=== PATIENT | male | born 1990 | race Caucasian/White ===

== ENCOUNTER 2022-07-03 12:42 | Emergency (ER) | payer BC ==
[2022-07-03 13:34] VITALS: BP 137/83; PULSE 64; RESP 18; TEMP 97.9
--- NOTE | 2022-07-03 13:36 | ED ---
General Adult HPI - General Source: patient, RN notes reviewed, old records reviewed Mode of arrival: ambulatory Limitations: no limitations - History of Present Illness -: days(s) (1) Location: chest (right ribs) Severity scale (1-10): 3 <Mainor Landeros - Last Filed: 07/03/22 13:34> - History of Present Illness Radiation: non-radiation Quality: aching Consistency: intermittent Improves with: rest Worsens with: movement, other (Palpation) Associated Symptoms: denies other symptoms Treatments Prior to Arrival: NSAID <Anders Meyer - Last Filed: 07/03/22 15:19> - General Chief complaint: Chest Pain Stated complaint: rib pain Time Seen by Provider: 07/03/22 13:31 - History of Present Illness Initial comments: 32-year-old well-appearing male presents emergency room with complaints of 2 weeks of cough. Patient states he was seen in urgent care on Friday had chest x-ray that was negative. He denies fevers. Did cough yesterday and felt a snap on the right side with increased pain today. States worse with movement, cough or sneezing. Patient does smoke marijuana denies cigarette smoking. No other medical history. (Mainor Landeros) - Related Data Previous Rx's Medication Instructions Recorded HYDROcodone/APAP 5-325MG [[place] 1 tab PO Q4HR PRN 3 Days #15 tab 07/03/22 5-325] Allergies Allergy/AdvReac Type Severity Reaction Status Date / Time No Known Allergies Allergy Verified 07/03/22 13:34 Review of Systems ROS Other: All systems not noted in ROS Statement are negative. <Mainor Landeros - Last Filed: 07/03/22 13:34> ROS Other: All systems not noted in ROS Statement are negative. Constitutional: Denies: fever, chills Respiratory: Denies: cough, dyspnea, wheezes Cardiovascular: Reports: as per HPI, chest pain Gastrointestinal: Denies: abdominal pain, nausea, vomiting, diarrhea, constipation Genitourinary: Denies: dysuria, hematuria, testicular pain Skin: Denies: rash <Anders Meyer - Last Filed: 07/03/22 15:19> ROS Statement: Those systems with pertinent positive or pertinent negative responses have been documented in the HPI. Past Medical History Past Medical History: No Reported History History of Any Multi-Drug Resistant Organisms: None Reported Past Surgical History: No Surgical Hx Reported Past Psychological History: Anxiety Smoking Status: Current every day smoker Past Alcohol Use History: Rare Past Drug Use History: Marijuana <Mainor Landeros - Last Filed: 07/03/22 13:34> General Exam Limitations: no limitations <Mainor Landeros - Last Filed: 07/03/22 13:34> General appearance: alert, in no apparent distress Head exam: Present: atraumatic, normocephalic Eye exam: Present: normal appearance Respiratory exam: Present: normal lung sounds bilaterally, chest wall tenderness. Absent: respiratory distress, wheezes, rales, rhonchi, stridor, accessory muscle use Cardiovascular Exam: Present: regular rate, normal rhythm, normal heart sounds. Absent: systolic murmur, diastolic murmur, rubs, gallop GI/Abdominal exam: Present: soft. Absent: distended, tenderness, guarding, rebound, rigid, mass Extremities exam: Present: normal inspection Neurological exam: Present: alert Skin exam: Present: warm, dry, intact, normal color. Absent: rash <GillescarmelinaAnders - Last Filed: 07/03/22 15:19> Course Vital Signs 07/03/22 13:30 Temperature 97.9 F Pulse Rate 64 Respiratory 18 Rate Blood Pressure 137/83 O2 Sat by Pulse 97 Oximetry Disposition <Laurent Landerosi - Last Filed: 07/03/22 13:34> Is patient prescribed a controlled substance at d/c from ED?: Yes <GillescarmelinaAnders - Last Filed: 07/03/22 15:19> Clinical Impression: Chest wall injury Disposition: HOME SELF-CARE Condition: Good Instructions (If sedation given, give patient instructions): Chest Wall Pain (ED) Prescriptions: HYDROcodone/APAP 5-325MG [[place] 5-325] 1 tab PO Q4HR PRN 3 Days #15 tab PRN Reason: Pain Referrals: Gasper Vega DO [Primary Care Provider] - 1-2 days
--- NOTE | 2022-07-03 14:06 | XR ---
EXAMINATION TYPE: XR chest 2V DATE OF EXAM: 07/03/2022 1:48 PM COMPARISON: None TECHNIQUE: XR chest 2V Frontal and lateral views of the chest. CLINICAL INDICATION:Male, 32 years old with history of right rib pain; FINDINGS: Lungs/Pleura: There is no evidence of pleural effusion, focal consolidation, or pneumothorax. Pulmonary vascularity: Unremarkable. Heart/mediastinum: Cardiomediastinal silhouette is unremarkable. Musculoskeletal: No acute osseous pathology. IMPRESSION: No acute cardiopulmonary disease/process. No evidence of displaced right rib fracture.
[2022-07-03] MEDS ORDERED: HYDROcodone/APAP 5-325MG 1 EACH TAB PO STA (15:15)
[2022-07-03] MEDS ORDERED: IBUPROFEN 400 MG TAB PO STA (15:15)
== END 2022-07-03 15:39 | disposition home or self-care (01) ==
LOC: EC 12:42
DX: S29.001A Unspecified injury of muscle and tendon of front wall of thorax, initial encounter (principal); F41.9 Anxiety disorder, unspecified; F17.200 Nicotine dependence, unspecified, uncomplicated; F12.90 Cannabis use, unspecified, uncomplicated; X58.XXXA Exposure to other specified factors, initial encounter
CPT/HCPCS: 71046; 99285

== ENCOUNTER 2023-03-06 09:34 | Emergency (ER) | payer BC ==
--- NOTE | 2023-03-06 10:10 | ED ---
Back Pain HPI - General Source: patient, RN notes reviewed Mode of arrival: ambulatory Limitations: no limitations <Nacho Baumann - Last Filed: 03/06/23 10:08> <Andrzej Sapp - Last Filed: 03/06/23 13:04> - General Chief Complaint: Back Pain/Injury Stated Complaint: Back pain Time Seen by Provider: 03/06/23 10:08 - History of Present Illness Initial Comments: 32-year-old male presents emergency Department with chief complaint of low back pain, right sciatica. Patient states symptoms started last few days. Patient denies any bowel, bladder incontinence or retention. No saddle anesthesias. (Nacho Baumann) This is a 32-year-old male who presents emergency Department stating he has some sciatica going down his left leg. Patient states his been ongoing for a couple weeks. 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 Patient denies any perineum numbness patient denies any difficulty urinating or being incontinent. Patient denies any direct trauma or fall. Patient denies any fever chills. Patient denies any abdominal pain. Patient denies any dysuria hematuria urinary frequency. (Andrzej Sapp) - Related Data Previous Rx's Medication Instructions Recorded HYDROcodone/APAP 5-325MG [[place] 1 tab PO Q4HR PRN 3 Days #15 tab 07/03/22 5-325] predniSONE [Deltasone] 40 mg PO DAILY #8 tab 03/06/23 Allergies Allergy/AdvReac Type Severity Reaction Status Date / Time No Known Allergies Allergy Verified 03/06/23 10:05 Review of Systems ROS Other: All systems not noted in ROS Statement are negative. <Nacho Baumann - Last Filed: 03/06/23 10:08> ROS Other: All systems not noted in ROS Statement are negative. <Andrzej Sapp - Last Filed: 03/06/23 13:04> ROS Statement: Those systems with pertinent positive or pertinent negative responses have been documented in the HPI. Past Medical History Past Medical History: No Reported History History of Any Multi-Drug Resistant Organisms: None Reported Past Surgical History: No Surgical Hx Reported Past Psychological History: Anxiety Smoking Status: Current every day smoker Past Alcohol Use History: Rare Past Drug Use History: Marijuana <Nacho Baumann - Last Filed: 03/06/23 10:08> General Exam Limitations: no limitations General appearance: alert, in no apparent distress <Nacho Baumann - Last Filed: 03/06/23 10:08> <Andrzej Sapp - Last Filed: 03/06/23 13:04> - General Exam Comments Initial Comments: Visual Physical Exam Vital signs reviewed General: Well-appearing, nontoxic, no acute distress. Head: Normocephalic, atraumatic Eyes: PERRLA, EOMI ENT: Airway patent Chest: Nonlabored breathing Skin: No visual rash, normal skin tone Neuro: Alert and oriented 3 Musculoskeletal: No gross abnormalities (Nacho Baumann) GENERAL: Patient is well-developed and well-nourished. Patient is nontoxic and well-hydrated and is in no acute distress. When I initially came to speak with the patient he was sleeping soundly in bed and I needed to shake him to arouse him ENT: Neck is soft and supple. No significant lymphadenopathy is noted. Oropharynx is clear. Moist mucous membranes. Neck has full range of motion without eliciting any pain. EYES: The sclera were anicteric and conjunctiva were pink and moist. Extraocular movements were intact and pupils were equal round and reactive to light. Eyelids were unremarkable. SKIN: Skin is clear with no lesions or rashes and otherwise unremarkable. NEUROLOGIC: Patient is alert and oriented x3. Cranial nerves II through XII are grossly intact. Motor and sensory are also intact. Normal speech, volume and content. Symmetrical smile. Perineum examination had normal sensation. Patient had straight leg test and pain was elicited on the left leg at about 60 MUSCULOSKELETAL: Normal extremities with adequate strength and full range of motion. No lower extremity swelling or edema. No calf tenderness. LYMPHATICS: No significant lymphadenopathy is noted PSYCHIATRIC: Normal psychiatric evaluation. (Andrzej Sapp) Course Vital Signs 03/06/23 03/06/23 10:06 12:13 Temperature 98.0 F Pulse Rate 83 72 Respiratory 16 18 Rate Blood Pressure 134/88 145/93 O2 Sat by Pulse 100 100 Oximetry Medical Decision Making <Nacho Baumann - Last Filed: 03/06/23 10:08> <Andrzej Sapp - Last Filed: 03/06/23 13:04> - Medical Decision Making I performed a quick note portion of this chart signed Nacho Baumann PA-C (Nacho Baumann) Was pt. sent in by a medical professional or institution (IMELDA Sanabria, GEOPHYSICAL MANAGER, urgent care, hospital, or [place] health [facility] facility...) When possible be specific @ -No Did you speak to anyone other than the patient for history (EMS, parent, family, police, friend...)? What history was obtained from this source @ -No Did you review nursing and triage notes (agree or disagree)? Why? @ -I reviewed and agree with nursing and triage notes Were old charts reviewed (outside hosp., previous admission, EMS record, old EKG , old radiological studies, urgent care reports/EKG's, [place] health [facility] facility records)? Report findings @ -No old charts were reviewed Differential Diagnosis (chest pain, altered mental status, abdominal pain women, abdominal pain men, vaginal bleeding, weakness, fever, dyspnea, syncope, headache, dizziness, GI bleed, back pain, seizure, CVA, palpatations, mental health, musculoskeletal)? @ -Differential Musculoskeletal Muscular strain, contusion, ligament sprain, fracture, arthritis, septic arthritis, bursitis, cellulitis, muscle spasm, nerve compression, DVT, arterial occlusion, herpes zoster, electrolyte abnormality, tumor.... This is not meant to be in all inclusive list EKG interpreted by me (3pts min.). @ -As above X-rays interpreted by me (1pt min.). @ -Lumbosacral spine x-ray showed no acute abnormality CT interpreted by me (1pt min.). @ -None done U/S interpreted by me (1pt. min.). @ -None done What testing was considered but not performed or refused? (CT, X-rays, U/S, labs)? Why? @ -None What meds were considered but not given or refused? Why? @ -None Did you discuss the management of the patient with other professionals (professionals i.e. IMELDA Sanabria, GEOPHYSICAL MANAGER, lab, RT, psych nurse, social scientist, bank courier, teacher, strike warfare/missile systems officer, correctional case manager)? Give summary @ -No Was smoking cessation discussed for >3mins.? @ -No Was critical care preformed (if so, how long)? @ -No Were there social determinants of health that impacted care today? How? (Homelessness, low income, unemployed, alcoholism, drug addiction, transportation, low edu. Level, literacy, decrease access to med. care, nursing home, rehab)? @ -No Was there de-escalation of care discussed even if they declined (Discuss DNR or withdrawal of care, Hospice)? DNR status @ -No What co-morbidities impacted this encounter? (DM, HTN, Smoking, COPD, CAD, Cancer, CVA, ARF, Chemo, Hep., AIDS, mental health diagnosis, sleep apnea, morbid obesity)? @ -None Was patient admitted / discharged? Hospital course, mention meds given and route, prescriptions, significant lab abnormalities, going to OR and other per tinent info. @ -Patient received Toradol and prednisone in the emergency department. Patient will follow-up with one of the orthopedic back surgeon Undiagnosed new problem with uncertain prognosis? @ -No Drug Therapy requiring intensive monitoring for toxicity (Heparin, Nitro, Insulin, Cardizem)? @ -No Were any procedures done? @ -No Diagnosis/symptom? @ -Sciatica Acute, or Chronic, or Acute on Chronic? @ -Acute Uncomplicated (without systemic symptoms) or Complicated (systemic symptoms)? @ -Uncomplicated Side effects of treatment? @ -No Exacerbation, Progression, or Severe Exacerbation? @ -No Poses a threat to life or bodily function? How? (Chest pain, [place], [place], pneumonia, PE, COPD, DKA, ARF, appy, cholecystitis, CVA, Diverticulitis, Homicidal, Suicidal, threat to staff... and all critical care pts) @ -No (Andrzej Sapp) Disposition <Nacho Baumann - Last Filed: 03/06/23 10:08> Is patient prescribed a controlled substance at d/c from ED?: No Time of Disposition: 13:04 <Andrzej Sapp - Last Filed: 03/06/23 13:04> Clinical Impression: Sciatica Disposition: HOME SELF-CARE Instructions (If sedation given, give patient instructions): Sciatica (ED) Prescriptions: predniSONE [Deltasone] 40 mg PO DAILY #8 tab Referrals: Gasper Vega DO [Primary Care Provider] - 1-2 days
--- NOTE | 2023-03-06 11:48 | XR ---
EXAM TYPE: LUMBAR SPINE X RAY SERIES COMPARISON: NONE HISTORY: Pain TECHNIQUE: 4 views are submitted. FINDINGS: Alignment is anatomic. The pedicles are intact. The transverse processes are intact. There is no s pondylolysis or spondylolisthesis. IMPRESSION: 1. No acute process. If symptoms persist or concern for disc herniation correlate with MRI.
[2023-03-06] MEDS ORDERED: KETOROLAC 15 MG/ML 1 ML VIAL IM STA (12:55)
[2023-03-06] MEDS ORDERED: predniSONE 50 MG TAB PO STA (12:56)
[2023-03-06] MEDS ORDERED: traMADol 50 MG STARTER PACK 3 TAB BTL PO STA (13:05)
[2023-03-06 16:01] VITALS: BP 145/93; PULSE 72; RESP 18; TEMP 98
== END 2023-03-06 13:25 | disposition home or self-care (01) ==
LOC: EC 09:34
DX: M54.41 Lumbago with sciatica, right side (principal); F17.200 Nicotine dependence, unspecified, uncomplicated; F12.90 Cannabis use, unspecified, uncomplicated; Z86.59 Personal history of other mental and behavioral disorders; X50.0XXA Overexertion from strenuous movement or load, initial encounter
CPT/HCPCS: 72110; 99283; 96372; J1885; J7512

== ENCOUNTER 2023-08-11 11:07 | Emergency (ER) | payer BC ==
[2023-08-11 11:15] VITALS: RESP 18
--- NOTE | 2023-08-11 11:27 | ED ---
Back Pain HPI - General Chief Complaint: Back Pain/Injury Stated Complaint: back pain Time Seen by Provider: 08/11/23 11:25 Source: patient, family, RN notes reviewed Limitations: no limitations - History of Present Illness Initial Comments: Patient is a 33-year-old male presented to ER with chief complaint of back pain. Patient states about 2 weeks ago he slipped and fell on ice landing on his right side. He states for the past couple of days he is now endorsing lumbar left back pain with radiation down his left leg. He states he feels a tingling sensation in his leg. He also has been having to use a cane to help him walk as he feels weak on the left side. Denies any bowel or bladder incontinence, saddle paresthesias, fevers, history of IV drug use. No other injuries from fall. - Related Data Previous Rx's Medication Instructions Recorded HYDROcodone/APAP 5-325MG [[place] 1 tab PO Q4HR PRN 3 Days #15 tab 07/03/22 5-325] predniSONE [Deltasone] 40 mg PO DAILY #8 tab 03/06/23 Ketorolac [Toradol] 10 mg PO Q6HR #20 tab 08/11/23 Allergies Allergy/AdvReac Type Severity Reaction Status Date / Time nickel Allergy Rash/Hives Verified 08/11/23 11:11 Review of Systems ROS Statement: Those systems with pertinent positive or pertinent negative responses have been documented in the HPI. ROS Other: All systems not noted in ROS Statement are negative. Past Medical History Past Medical History: No Reported History History of Any Multi-Drug Resistant Organisms: None Reported Past Surgical History: No Surgical Hx Reported Past Psychological History: Anxiety Smoking Status: Current every day smoker Past Alcohol Use History: Rare Past Drug Use History: Marijuana General Exam Limitations: no limitations General appearance: alert, in no apparent distress Head exam: Present: atraumatic, normocephalic, normal inspection Respiratory exam: Present: normal lung sounds bilaterally. Absent: respiratory distress, wheezes, rales, rhonchi, stridor Cardiovascular Exam: Present: regular rate, normal rhythm, normal heart sounds. Absent: systolic murmur, diastolic murmur, rubs, gallop, clicks Back exam: Present: tenderness (Left pelvic girdle. Positive left straight leg raise. Equal strength bilaterally. 2+ left dorsalis pedis pulse. Incision intact) Neurological exam: Present: alert, oriented X3, CN II-XII intact Psychiatric exam: Present: normal affect, normal mood Skin exam: Present: warm, dry, intact, normal color. Absent: rash Course Vital Signs 08/11/23 08/11/23 11:08 12:45 Temperature 97.8 F 97.9 F Pulse Rate 98 82 Respiratory 18 18 Rate Blood Pressure 150/88 149/89 O2 Sat by Pulse 98 97 Oximetry Medical Decision Making - Medical Decision Making Was pt. sent in by a medical professional or institution (, PA, MANAGER CIVIL, urgent care, hospital, or [facility]...) When possible be specific @ -No Did you speak to anyone other than the patient for history (EMS, parent, family, police, friend...)? What history was obtained from this source @ -Family providing past medical history Did you review nursing and triage notes (agree or disagree)? Why? @ -I reviewed and agree with nursing and triage notes Were old charts reviewed (outside hosp., previous admission, EMS record, old EKG, old radiological studies, urgent care reports/EKG's, [facility] records)? Report findings @ -No old charts were reviewed Differential Diagnosis (chest pain, altered mental status, abdominal pain women, abdominal pain men, vaginal bleeding, weakness, fever, dyspnea, syncope, headache, dizziness, GI bleed, back pain, seizure, CVA, palpatations, mental health, musculoskeletal)? @ -Differential Back Pain: Strain, zoster, cauda equina syndrome, epidural abscess, vertebral osteomyelitis, discitis, fracture, subluxation, disc herniation, DJD, spinal stenosis, dissection, AAA, pancreatitis, peptic ulcer disease, pyelonephritis, kidney stone, this is not meant to be an all-inclusive list. EKG interpreted by me (3pts min.). @ -None done X-rays interpreted by me (1pt min.). @ -None done CT interpreted by me (1pt min.). @ -CT lumbar spine shows a circumferential disc bulge and moderate broad disc protrusion at L5-S1. There is also a small avulsion fragment from the posterior aspect of S1. No compression fractures or malalignment. U/S interpreted by me (1pt. min.). @ -None done What testing was considered but not performed or refused? (CT, X-rays, U/S, labs)? Why? @ -None What meds were considered but not given or refused? Why? @ -Lidocaine patches considered patient refused as he reports "they don't stick on me" Did you discuss the management of the patient with other professionals (professionals i.e. , PA, MANAGER CIVIL, lab, RT, psych nurse, licensed clinical social worker, prawn trawler hand, teacher, police booking officer, caseworker)? Give summary @ -No Was smoking cessation discussed for >3mins.? @ -No Was critical care preformed (if so, how long)? @ -No Were there social determinants of health that impacted care today? How? (Homelessness, low income, unemployed, alcoholism, drug addiction, transportation, low edu. Level, literacy, decrease access to med. care, senior living, rehab)? @ -No Was there de-escalation of care discussed even if they declined (Discuss DNR or withdrawal of care, Hospice)? DNR status @ -No What co-morbidities impacted this encounter? (DM, HTN, Smoking, COPD, CAD, Cancer, CVA, ARF, Chemo, Hep., AIDS, mental health diagnosis, sleep apnea, morbid obesity)? @ -None Was patient admitted / discharged? Hospital course, mention meds given and route, prescriptions, significant lab abnormalities, going to OR and other pertinent info. @ -Discharged. Patient is a 33 year old male presenting to the ER with a chief complaint of back pain. History and physical exam were completed. Vitals stable. Patient's bilateral lower extremities neurovascularly intact. No red flag back pain symptoms indicative of cauda equina syndrome. Equal strength bilaterally. Patient no signs of acute distress. Patient received IM Toradol with improvement of pain in the ER. CT lumbar spine showed circumferential disc bulge and moderate broad disc protrusion at L5-S1. There is also a small avulsion fragment from the posterior aspect of S1. No compression fractures or malalignment. Results discussed with patient, all questions answered. Patient prescribed p.o. Toradol for pain control at home. Advised him to follow-up with orthopedics soon as possible for further evaluation and treatment. Return parameters were discussed. Patient be discharged stable condition with follow- up to orthopedics. Referral given. Patient expressed understanding and agreement with care plan. Undiagnosed new problem with uncertain prognosis? @ -No Drug Therapy requiring intensive monitoring for toxicity (Heparin, Nitro, Insulin, Cardizem)? @ -No Were any procedures done? @ -No Diagnosis/symptom? @ -Bulging disc L5-S1/mechanical back pain Acute, or Chronic, or Acute on Chronic? @ -Acute Uncomplicated (without systemic symptoms) or Complicated (systemic symptoms)? @ -Uncomplicated Side effects of treatment? @ -No Exacerbation, Progression, or Severe Exacerbation? @ -No Poses a threat to life or bodily function? How? (Chest pain, [place], [place], pneumonia, PE, COPD, DKA, ARF, appy, cholecystitis, CVA, Diverticulitis, Homicidal, Suicidal, threat to staff... and all critical care pts) @ -No - Radiology Data Radiology results: report reviewed, image reviewed Disposition Clinical Impression: Mechanical back pain, Bulging lumbar disc Disposition: HOME SELF-CARE Condition: Stable Instructions (If sedation given, give patient instructions): Acute Low Back Pain (ED) Additional Instructions: Please follow-up with orthopedics in the next 1 to 2 days. Return to the ER for any new or worsening symptoms. Prescriptions: Ketorolac [Toradol] 10 mg PO Q6HR #20 tab Is patient prescribed a controlled substance at d/c from ED?: No Referrals: Gasper Vega DO [Primary Care Provider] - 1-2 days Pritesh España MD [STAFF PHYSICIAN] - 1-2 days Time of Disposition: 12:22
[2023-08-11] MEDS: KETOROLAC 15 MG/ML 1 ML VIAL IM STA (11:38)
--- NOTE | 2023-08-11 12:12 | CT ---
EXAMINATION TYPE: CT lumbar spine wo con DATE OF EXAM: 08/11/2023 12:06 PM COMPARISON: None HISTORY: Back pain s/p fall last week CT DLP: 1030.8 mGycm Automated exposure control for dose reduction was used. Unenhanced CT of the lumbar spine was performed. Bone and soft tissue window settings are submitted as well as coronal and sagittal reconstructions. Findings: Lumbar vertebral segments are normal in height and alignment and there is no subluxation. The disc sp aces are well-maintained in height. There is marked circumferential disc bulge at the L5-S1 disc. The there is a broad-based disc protrus ion of the L5-S1 disc centrally and there appears to be a small avulsion fragment from S1. There is no spinal stenosis. There is no bony neural foraminal stenosis. The sacrum and SI joints are normal. IMPRESSION: 1. Circumferential disc bulge and moderate broad-based disc protrusion at the L5-S1 levels described above. 2. small tiny avulsion fragment from the posterior aspect of S1. 3. No compression fractures or malalignment of the lumbar vertebral bodies.
[2023-08-11 13:15] VITALS: BP 149/89; PULSE 82; TEMP 97.9
== END 2023-08-11 13:00 | disposition home or self-care (01) ==
LOC: EC 11:07
DX: M51.36 Other intervertebral disc degeneration, lumbar region (principal); F17.200 Nicotine dependence, unspecified, uncomplicated; F12.90 Cannabis use, unspecified, uncomplicated; Z88.8 Allergy status to other drugs, medicaments and biological substances
CPT/HCPCS: 72131; 99284; 96372; J1885